=== PATIENT | female | born 1940 | race Caucasian/White ===

== ENCOUNTER → 2017-01-01 | Outpatient (CLI) | payer BC ==
[2015-04-14 14:16] VITALS: BP 117/57
--- NOTE | 2017-01-01 13:42 | KCIC ---
CT scan of the abdomen and pelvis without contrast 01/01/2017 HISTORY: Microscopic hematuria with pelvic pain. TECHNIQUE: Unenhanced, contiguous, 3 mm axial sections were obtained through the abdomen and pelvis. One or more of the following individualized dose reduction techniques were utilized for this study: 1. Automated exposure control. 2. Adjustment of the mA and/or kV according to patient size. 3. Use of iterative reconstruction technique. FINDINGS: No previous imaging studies are available for comparison. Images through the lung bases demonstrate minimal dependent subsegmental atelectasis bilaterally. A 1 cm bulla is seen involving the right lower lobe. Several rounded low-attenuation lesions are seen scattered throughout both lobes of the liver. These measure 5 mm to 3.5 cm in size. They are felt to most likely represent hepatic cysts. The spleen, pancreas and adrenal glands are within normal limits. A rounded 1 cm low-attenuation lesion is seen involving the lower pole of the right kidney. This likely represents a cyst. A 1 mm nonobstructing calculus is seen involving the superior pole of the left kidney. No ureteral calculus is seen. There is no evidence of obstruction of either collecting system. Moderate atherosclerotic calcification of the abdominal aorta is seen. The abdominal aorta is tortuous but tapers normally. The gallbladder slightly contracted. No free fluid or free air is seen within the abdomen. Air and stool is seen throughout the colon. There is no definite evidence of bowel obstruction. Images through the pelvis demonstrate the urinary bladder distended with urine. Calcifications are seen within the pelvis consistent with phleboliths. No distal ureteral calculus is seen. No adnexal mass is noted. No free fluid is seen. Mild S-shaped curvature of the thoracolumbar spine is seen. Degenerative changes are seen involving lower thoracic and throughout the lumbar spine and both hips. IMPRESSION: 1. 1 mm nonobstructing calculus is seen involving the superior pole of the left kidney. 2. No ureteral calculus is seen. There is no evidence of obstruction of either collecting system. 3. No acute abnormality is seen involving the abdomen or pelvis. Electronically signed by: Reese Hobbs MD (01/01/2017 1:38 PM) [email or web address]
== END | disposition home or self-care (01) ==
LOC: KCIC CT 12:21
PROVIDERS: ATTEND Family Medicine
DX: N20.0 Calculus of kidney (principal); I70.0 Atherosclerosis of aorta; R31.29 Other microscopic hematuria
CPT/HCPCS: 74176

== ENCOUNTER → 2017-05-13 | Outpatient (CLI) | payer BC | END | disposition home or self-care (01) | LOC: KCIC US 12:13 | DX: R22.1 Localized swelling, mass and lump, neck (principal) | CPT/HCPCS: 76536 ==

== ENCOUNTER → 2017-05-28 | Outpatient (CLI) | payer BC ==
[2017-05-28] MEDS: IOHEXOL 300 MG/ML 100ML VIAL. IV (09:42)
[2017-05-28 10:25] LABS: ISTAT CREATININE 0.9 mg/dL (0.6-1.1)
== END | disposition home or self-care (01) ==
LOC: KCIC CT 09:05
DX: M47.892 Other spondylosis, cervical region (principal); R22.0 Localized swelling, mass and lump, head
CPT/HCPCS: 70491; 82565; Q9967

== ENCOUNTER 2017-07-18 16:20 | Inpatient (IN) | payer BC ==
[2017-07-18] MEDS: fentaNYL PF VIAL 100 MCG/2 ML VIAL IV (18:26)
[2017-07-18] MEDS: MORPHINE SULFATE 10 MG/ML VIAL. IV (19:46)
[2017-07-18 20:43] LABS: ADD MAN DIFF? NO
[2017-07-18 20:44] LABS: BASO % 0 % (0-3); EOS % 1 % (0-3); HEMATOCRIT 32.8 % (36.0-47.0); HEMOGLOBIN 11.4 g/dL (12.0-15.5); LYMPH # 0.5 x10^3/uL (1.0-4.8); LYMPH % 8 % (24-48); MEAN CORPUSCULAR HEMOGLOBIN 31 pg (25-35); MEAN CORPUSCULAR HGB CONC 35 g/dL (31-37); MEAN CORPUSCULAR VOLUME 90 fL (79-100); MONO # 0.6 x10^3/uL (0.0-1.1); MONO % 9 % (0-9); NEUT # 5.7 x10^3uL (1.8-7.7); NEUT % 83 % (31-73); PLATELET COUNT 166 x10^3/uL (140-400); RED BLOOD COUNT 3.64 x10^6/uL (3.50-5.40); RED CELL DISTRIBUTION WIDTH 15.3 % (11.5-14.5); WHITE BLOOD COUNT 6.8 x10^3/uL (4.0-11.0)
[2017-07-18] MEDS ORDERED: IV NORMAL SALINE 1000ML BAG 1,000 ML IV (20:45)
[2017-07-18] MEDS ORDERED: ONDANSETRON PF 4 MG/2 ML VIAL. IV (20:45)
[2017-07-18 20:54] LABS: INR 1.2 (0.8-1.1); PARTIAL THROMBOPLASTIN TIME 36 SEC (24-38); PROTHROMBIN TIME PATIENT 14.3 SEC (11.7-14.0)
[2017-07-18 21:13] LABS: ANION GAP 9 (6-14); BLOOD UREA NITROGEN 16 mg/dL (7-20); CALCIUM 8.7 mg/dL (8.5-10.1); CARBON DIOXIDE 27 mmol/L (21-32); CHLORIDE 106 mmol/L (98-107); CREATININE 0.9 mg/dL (0.6-1.0); GFR 60.9; GLUCOSE 152 mg/dL (70-99); POTASSIUM 3.6 mmol/L (3.5-5.1); SODIUM 142 mmol/L (136-145)
[2017-07-18] MEDS: MORPHINE SULFATE 4 MG/ML DISP.SYRIN. IV (21:15)
== END 2017-07-19 07:26 | disposition home or self-care (01) | DRG 563 ==
LOC: ER 16:20 → 4 NORTH 20:32
DX: S42.202A Unspecified fracture of upper end of left humerus, initial encounter for closed fracture (principal); F32.9 Major depressive disorder, single episode, unspecified; G47.30 Sleep apnea, unspecified; W01.0XXA Fall on same level from slipping, tripping and stumbling without subsequent striking against object, initial encounter; Y93.01 Activity, walking, marching and hiking; Z87.11 Personal history of peptic ulcer disease; Z91.81 History of falling; Y92.512 Supermarket, store or market as the place of occurrence of the external cause; Z88.8 Allergy status to other drugs, medicaments and biological substances
CPT/HCPCS: 36415; 73030; 73060; 73200; 73564; 76376; 80048; 85025; 85610; 85730; 86850; 86900; 86901; 96374; 96375; 96376; 99285-25; J2270; J3010

== ENCOUNTER 2017-07-23 16:20 | Inpatient (IN) | payer BC ==
[2017-07-23 17:13] LABS: ADD MAN DIFF? NO
[2017-07-23 17:15] LABS: BASO % 0 % (0-3); EOS % 1 % (0-3); HEMATOCRIT 30.3 % (36.0-47.0); HEMOGLOBIN 10.6 g/dL (12.0-15.5); LYMPH # 0.4 x10^3/uL (1.0-4.8); LYMPH % 6 % (24-48); MEAN CORPUSCULAR HEMOGLOBIN 31 pg (25-35); MEAN CORPUSCULAR HGB CONC 35 g/dL (31-37); MEAN CORPUSCULAR VOLUME 89 fL (79-100); MONO # 0.6 x10^3/uL (0.0-1.1); MONO % 9 % (0-9); NEUT # 5.7 x10^3uL (1.8-7.7); NEUT % 85 % (31-73); PLATELET COUNT 236 x10^3/uL (140-400); RED BLOOD COUNT 3.41 x10^6/uL (3.50-5.40); WHITE BLOOD COUNT 6.7 x10^3/uL (4.0-11.0)
[2017-07-23 17:27] LABS: INR 1.2 (0.8-1.1); PARTIAL THROMBOPLASTIN TIME 33 SEC (24-38); PROTHROMBIN TIME PATIENT 14.3 SEC (11.7-14.0)
[2017-07-23 17:32] LABS: ALBUMIN 3.3 g/dL (3.4-5.0); ALBUMIN/GLOBULIN RATIO 0.9 (1.0-1.7); ALK PHOS 70 U/L (46-116); ALT (SGPT) 18 U/L (14-59); AST (SGOT) 13 U/L (15-37); BLOOD UREA NITROGEN 10 mg/dL (7-20); BUN/CREATININE RATIO 13 (6-20); CALCIUM 9.2 mg/dL (8.5-10.1); CARBON DIOXIDE 31 mmol/L (21-32); CHLORIDE 102 mmol/L (98-107); CREATININE 0.8 mg/dL (0.6-1.0); GFR 69.7; GLUCOSE 126 mg/dL (70-99); POTASSIUM 3.4 mmol/L (3.5-5.1); TOTAL BILIRUBIN 0.9 mg/dL (0.2-1.0); TOTAL PROTEIN 7.1 g/dL (6.4-8.2)
[2017-07-23 17:36] LABS: ANION GAP 8 (6-14); SODIUM 141 mmol/L (136-145)
[2017-07-23] MEDS: HEPARIN for IV BOLUS 10,000 UNIT/10 ML VIAL. IV (17:41)
[2017-07-23] MEDS: HEPARIN 25,000UTS/500ML PREMIX 500 ML IV (17:43)
[2017-07-23] MEDS ORDERED: ACETAMINOPHEN 325 MG TABLET. PO (18:15)
[2017-07-23] MEDS ORDERED: hydrALAZINE 20 MG/ML VIAL. IVP (18:15)
[2017-07-23] MEDS ORDERED: ONDANSETRON PF 4 MG/2 ML VIAL. IV (18:15)
[2017-07-23] MEDS: MORPHINE SULFATE 4 MG/ML DISP.SYRIN. IV (20:46)
[2017-07-23 23:59] LABS: UNFRACTIONATED HEPARIN TESTING 0.33 IU/mL (0.30-0.70)
[2017-07-24 03:49] LABS: ADD MAN DIFF? NO
[2017-07-24 03:58] LABS: BASO % 0 % (0-3); EOS # 0.1 x10^3/uL (0.0-0.7); EOS % 1 % (0-3); HEMATOCRIT 27.4 % (36.0-47.0); HEMOGLOBIN 9.8 g/dL (12.0-15.5); LYMPH # 0.6 x10^3/uL (1.0-4.8); LYMPH % 10 % (24-48); MEAN CORPUSCULAR HEMOGLOBIN 31 pg (25-35); MEAN CORPUSCULAR HGB CONC 36 g/dL (31-37); MEAN CORPUSCULAR VOLUME 88 fL (79-100); MONO # 0.6 x10^3/uL (0.0-1.1); MONO % 10 % (0-9); NEUT # 5.3 x10^3uL (1.8-7.7); NEUT % 80 % (31-73); PLATELET COUNT 228 x10^3/uL (140-400); RED BLOOD COUNT 3.13 x10^6/uL (3.50-5.40); RED CELL DISTRIBUTION WIDTH 14.4 % (11.5-14.5); WHITE BLOOD COUNT 6.7 x10^3/uL (4.0-11.0)
[2017-07-24 04:03] LABS: UNFRACTIONATED HEPARIN TESTING 0.24 IU/mL (0.30-0.70)
[2017-07-24 05:19] LABS: ANION GAP 9 (6-14); BLOOD UREA NITROGEN 13 mg/dL (7-20); CALCIUM 8.9 mg/dL (8.5-10.1); CARBON DIOXIDE 30 mmol/L (21-32); CHLORIDE 105 mmol/L (98-107); CREATININE 0.7 mg/dL (0.6-1.0); GFR 81.4; GLUCOSE 127 mg/dL (70-99); POTASSIUM 3.1 mmol/L (3.5-5.1); SODIUM 144 mmol/L (136-145)
[2017-07-24 08:09] LABS: UNFRACTIONATED HEPARIN TESTING 0.19 IU/mL (0.30-0.70)
[2017-07-24] MEDS: HEPARIN for IV BOLUS 10,000 UNIT/10 ML VIAL. IV ×3 (08:45→23:07)
[2017-07-24] MEDS ORDERED: BISACODYL 10 MG SUPP.RECT. PR (11:30)
[2017-07-24] MEDS: POLYETHYLENE GLYCOL 3350 17 GM PACKET. PO (11:59)
[2017-07-24] MEDS: MULTIVITAMIN with MINERAL TABLET. PO (12:00)
[2017-07-24] MEDS: CITALOPRAM 20 MG TABLET. PO (12:00)
[2017-07-24] MEDS: traMADol 50 MG TABLET PO (12:00)
[2017-07-24] MEDS: SENNOSIDES/DOCUSATE 8.6/50MG TABLET. PO ×2 (12:00→21:05)
[2017-07-24] MEDS: CALCIUM CARB/VIT D3 500/200 TABLET. PO (12:00)
[2017-07-24] MEDS: DOCUSATE SODIUM 100 MG CAPSULE. PO (12:00)
[2017-07-24] MEDS: SUCRALFATE 1 GM TABLET. PO ×3 (12:00→21:05)
[2017-07-24 14:39] LABS: UNFRACTIONATED HEPARIN TESTING 0.28 IU/mL (0.30-0.70)
[2017-07-24] MEDS: oxyCODONE/APAP 5/325 1 TAB TABLET PO (16:16)
[2017-07-24] MEDS: PANTOPRAZOLE 40 MG TABLET.DR. PO (16:16)
[2017-07-24] MEDS: WARFARIN 7.5 MG TABLET. PO (16:30)
[2017-07-24] MEDS: MORPHINE SULFATE 4 MG/ML DISP.SYRIN. IV (18:35)
[2017-07-24] MEDS ORDERED: SENNOSIDES/DOCUSATE 8.6/50MG TABLET. PO (21:00)
[2017-07-24 22:16] LABS: UNFRACTIONATED HEPARIN TESTING 0.16 IU/mL (0.30-0.70)
[2017-07-24] MEDS: HEPARIN 25,000UTS/500ML PREMIX 500 ML IV (23:31)
[2017-07-25] MEDS: POLYETHYLENE GLYCOL 3350 17 GM PACKET. PO ×2 (09:00→09:11)
[2017-07-25 09:03] LABS: ANION GAP 8 (6-14); BLOOD UREA NITROGEN 13 mg/dL (7-20); CALCIUM 8.8 mg/dL (8.5-10.1); CARBON DIOXIDE 28 mmol/L (21-32); CHLORIDE 106 mmol/L (98-107); CREATININE 0.8 mg/dL (0.6-1.0); GFR 69.7; GLUCOSE 138 mg/dL (70-99); SODIUM 142 mmol/L (136-145)
[2017-07-25] MEDS: CITALOPRAM 20 MG TABLET. PO (09:12)
[2017-07-25] MEDS: MULTIVITAMIN with MINERAL TABLET. PO (09:12)
[2017-07-25] MEDS: traMADol 50 MG TABLET PO (09:12)
[2017-07-25] MEDS: SUCRALFATE 1 GM TABLET. PO ×4 (09:12→20:55)
[2017-07-25] MEDS: PANTOPRAZOLE 40 MG TABLET.DR. PO ×2 (09:12→16:31)
[2017-07-25] MEDS: CALCIUM CARB/VIT D3 500/200 TABLET. PO (09:12)
[2017-07-25] MEDS: SENNOSIDES/DOCUSATE 8.6/50MG TABLET. PO ×2 (09:13→20:56)
[2017-07-25 10:11] LABS: HEMATOCRIT 27.6 % (36.0-47.0); HEMOGLOBIN 9.7 g/dL (12.0-15.5); MEAN CORPUSCULAR HEMOGLOBIN 32 pg (25-35); MEAN CORPUSCULAR HGB CONC 35 g/dL (31-37); MEAN CORPUSCULAR VOLUME 90 fL (79-100); PLATELET COUNT 266 x10^3/uL (140-400); RED BLOOD COUNT 3.06 x10^6/uL (3.50-5.40); RED CELL DISTRIBUTION WIDTH 14.8 % (11.5-14.5); WHITE BLOOD COUNT 6.4 x10^3/uL (4.0-11.0)
[2017-07-25 10:31] LABS: INR 1.2 (0.8-1.1); PROTHROMBIN TIME PATIENT 14.8 SEC (11.7-14.0); UNFRACTIONATED HEPARIN TESTING 0.45 IU/mL (0.30-0.70)
[2017-07-25] MEDS: POTASSIUM CHLORIDE 20 MEQ TABLET.ER. PO ×2 (11:41→20:55)
[2017-07-25 12:26] LABS: UNFRACTIONATED HEPARIN TESTING 0.52 IU/mL (0.30-0.70)
[2017-07-25] MEDS: WARFARIN 5 MG TABLET. PO (16:31)
[2017-07-25] MEDS: oxyCODONE/APAP 5/325 1 TAB TABLET PO (16:33)
[2017-07-26 06:56] LABS: HEMATOCRIT 26.5 % (36.0-47.0); HEMOGLOBIN 9.2 g/dL (12.0-15.5); MEAN CORPUSCULAR HEMOGLOBIN 31 pg (25-35); MEAN CORPUSCULAR HGB CONC 35 g/dL (31-37); MEAN CORPUSCULAR VOLUME 90 fL (79-100); PLATELET COUNT 237 x10^3/uL (140-400); RED BLOOD COUNT 2.96 x10^6/uL (3.50-5.40); RED CELL DISTRIBUTION WIDTH 15.1 % (11.5-14.5); WHITE BLOOD COUNT 4.7 x10^3/uL (4.0-11.0)
[2017-07-26 07:16] LABS: ALBUMIN 2.8 g/dL (3.4-5.0); ALBUMIN/GLOBULIN RATIO 0.8 (1.0-1.7); ALK PHOS 63 U/L (46-116); ALT (SGPT) 20 U/L (14-59); ANION GAP 4 (6-14); AST (SGOT) 14 U/L (15-37); BLOOD UREA NITROGEN 10 mg/dL (7-20); BUN/CREATININE RATIO 13 (6-20); CALCIUM 8.8 mg/dL (8.5-10.1); CARBON DIOXIDE 33 mmol/L (21-32); CHLORIDE 106 mmol/L (98-107); CREATININE 0.8 mg/dL (0.6-1.0); GFR 69.7; GLUCOSE 126 mg/dL (70-99); POTASSIUM 4.3 mmol/L (3.5-5.1); SODIUM 143 mmol/L (136-145); TOTAL BILIRUBIN 0.5 mg/dL (0.2-1.0); TOTAL PROTEIN 6.2 g/dL (6.4-8.2)
[2017-07-26 07:55] LABS: UNFRACTIONATED HEPARIN TESTING 0.44 IU/mL (0.30-0.70)
[2017-07-26 08:05] LABS: INR 1.6 (0.8-1.1); PROTHROMBIN TIME PATIENT 18.5 SEC (11.7-14.0)
[2017-07-26] MEDS: SUCRALFATE 1 GM TABLET. PO ×4 (08:41→21:34)
[2017-07-26] MEDS: PANTOPRAZOLE 40 MG TABLET.DR. PO ×2 (08:41→17:28)
[2017-07-26] MEDS: traMADol 50 MG TABLET PO (08:41)
[2017-07-26] MEDS: CALCIUM CARB/VIT D3 500/200 TABLET. PO (08:41)
[2017-07-26] MEDS: SENNOSIDES/DOCUSATE 8.6/50MG TABLET. PO ×2 (08:41→21:00)
[2017-07-26] MEDS: MULTIVITAMIN with MINERAL TABLET. PO (08:41)
[2017-07-26] MEDS: CITALOPRAM 20 MG TABLET. PO (08:42)
[2017-07-26] MEDS: POLYETHYLENE GLYCOL 3350 17 GM PACKET. PO (08:42)
[2017-07-26] MEDS: ANTI-COAG MONITOR BY PHARMACY. MC (13:59)
[2017-07-26] MEDS: WARFARIN 3 MG TABLET. PO (17:30)
[2017-07-26] MEDS: oxyCODONE/APAP 5/325 1 TAB TABLET PO (18:53)
[2017-07-26] MEDS: HEPARIN 25,000UTS/500ML PREMIX 500 ML IV (19:00)
[2017-07-27 06:00] LABS: INR 1.9 (0.8-1.1); PROTHROMBIN TIME PATIENT 20.8 SEC (11.7-14.0)
[2017-07-27 06:02] LABS: UNFRACTIONATED HEPARIN TESTING 0.54 IU/mL (0.30-0.70)
[2017-07-27] MEDS: SUCRALFATE 1 GM TABLET. PO ×4 (09:00→20:33)
[2017-07-27] MEDS: CALCIUM CARB/VIT D3 500/200 TABLET. PO (09:00)
[2017-07-27] MEDS: POLYETHYLENE GLYCOL 3350 17 GM PACKET. PO (09:14)
[2017-07-27] MEDS: CITALOPRAM 20 MG TABLET. PO (09:15)
[2017-07-27] MEDS: SENNOSIDES/DOCUSATE 8.6/50MG TABLET. PO ×2 (09:15→20:34)
[2017-07-27] MEDS: PANTOPRAZOLE 40 MG TABLET.DR. PO ×2 (09:15→16:50)
[2017-07-27] MEDS: MULTIVITAMIN with MINERAL TABLET. PO (09:15)
[2017-07-27] MEDS: traMADol 50 MG TABLET PO (09:15)
[2017-07-27] MEDS: ANTI-COAG MONITOR BY PHARMACY. MC (13:06)
[2017-07-27] MEDS: WARFARIN 3 MG TABLET. PO (16:50)
[2017-07-27] MEDS: HEPARIN 25,000UTS/500ML PREMIX 500 ML IV (20:33)
[2017-07-28 04:52] LABS: ADD MAN DIFF? NO
[2017-07-28 05:05] LABS: BASO % 0 % (0-3); EOS # 0.1 x10^3/uL (0.0-0.7); EOS % 2 % (0-3); HEMATOCRIT 28.1 % (36.0-47.0); HEMOGLOBIN 9.9 g/dL (12.0-15.5); LYMPH # 0.6 x10^3/uL (1.0-4.8); LYMPH % 10 % (24-48); MEAN CORPUSCULAR HEMOGLOBIN 32 pg (25-35); MEAN CORPUSCULAR HGB CONC 35 g/dL (31-37); MEAN CORPUSCULAR VOLUME 90 fL (79-100); MONO # 0.5 x10^3/uL (0.0-1.1); MONO % 8 % (0-9); NEUT # 4.5 x10^3uL (1.8-7.7); NEUT % 79 % (31-73); PLATELET COUNT 260 x10^3/uL (140-400); RED BLOOD COUNT 3.13 x10^6/uL (3.50-5.40); RED CELL DISTRIBUTION WIDTH 15.6 % (11.5-14.5); WHITE BLOOD COUNT 5.7 x10^3/uL (4.0-11.0)
[2017-07-28 05:17] LABS: INR 1.9 (0.8-1.1); PROTHROMBIN TIME PATIENT 21.5 SEC (11.7-14.0)
[2017-07-28 05:18] LABS: UNFRACTIONATED HEPARIN TESTING 0.53 IU/mL (0.30-0.70)
[2017-07-28 05:28] LABS: ANION GAP 7 (6-14); BLOOD UREA NITROGEN 13 mg/dL (7-20); CALCIUM 8.7 mg/dL (8.5-10.1); CARBON DIOXIDE 31 mmol/L (21-32); CHLORIDE 105 mmol/L (98-107); CREATININE 0.9 mg/dL (0.6-1.0); GFR 60.9; GLUCOSE 122 mg/dL (70-99); POTASSIUM 4.1 mmol/L (3.5-5.1); SODIUM 143 mmol/L (136-145)
[2017-07-28] MEDS: SENNOSIDES/DOCUSATE 8.6/50MG TABLET. PO ×2 (08:35→20:37)
[2017-07-28] MEDS: MULTIVITAMIN with MINERAL TABLET. PO (08:35)
[2017-07-28] MEDS: oxyCODONE/APAP 5/325 1 TAB TABLET PO (08:35)
[2017-07-28] MEDS: SUCRALFATE 1 GM TABLET. PO ×4 (08:35→20:37)
[2017-07-28] MEDS: PANTOPRAZOLE 40 MG TABLET.DR. PO ×2 (08:35→16:54)
[2017-07-28] MEDS: CITALOPRAM 20 MG TABLET. PO (08:35)
[2017-07-28] MEDS: CALCIUM CARB/VIT D3 500/200 TABLET. PO (08:35)
[2017-07-28] MEDS: POLYETHYLENE GLYCOL 3350 17 GM PACKET. PO (08:39)
[2017-07-28] MEDS: ANTI-COAG MONITOR BY PHARMACY. MC (13:15)
[2017-07-28] MEDS: HEPARIN 25,000UTS/500ML PREMIX 500 ML IV (15:08)
[2017-07-28] MEDS: WARFARIN 3 MG TABLET. PO (16:54)
[2017-07-29 04:32] LABS: ADD MAN DIFF? NO
[2017-07-29 04:51] LABS: BASO % 0 % (0-3); EOS # 0.1 x10^3/uL (0.0-0.7); EOS % 2 % (0-3); HEMATOCRIT 29.5 % (36.0-47.0); HEMOGLOBIN 10.3 g/dL (12.0-15.5); LYMPH # 0.7 x10^3/uL (1.0-4.8); LYMPH % 10 % (24-48); MEAN CORPUSCULAR HEMOGLOBIN 32 pg (25-35); MEAN CORPUSCULAR HGB CONC 35 g/dL (31-37); MEAN CORPUSCULAR VOLUME 90 fL (79-100); MONO # 0.5 x10^3/uL (0.0-1.1); MONO % 8 % (0-9); NEUT # 5.7 x10^3uL (1.8-7.7); NEUT % 81 % (31-73); PLATELET COUNT 298 x10^3/uL (140-400); RED BLOOD COUNT 3.27 x10^6/uL (3.50-5.40); RED CELL DISTRIBUTION WIDTH 15.8 % (11.5-14.5)
[2017-07-29 05:06] LABS: INR 1.9 (0.8-1.1); PROTHROMBIN TIME PATIENT 20.9 SEC (11.7-14.0)
[2017-07-29 05:07] LABS: UNFRACTIONATED HEPARIN TESTING 0.67 IU/mL (0.30-0.70)
[2017-07-29 05:22] LABS: ANION GAP 8 (6-14); BLOOD UREA NITROGEN 11 mg/dL (7-20); CALCIUM 9.1 mg/dL (8.5-10.1); CARBON DIOXIDE 29 mmol/L (21-32); CHLORIDE 106 mmol/L (98-107); CREATININE 0.9 mg/dL (0.6-1.0); GFR 60.9; GLUCOSE 123 mg/dL (70-99); SODIUM 143 mmol/L (136-145)
[2017-07-29] MEDS: MULTIVITAMIN with MINERAL TABLET. PO (09:10)
[2017-07-29] MEDS: POLYETHYLENE GLYCOL 3350 17 GM PACKET. PO (09:10)
[2017-07-29] MEDS: SENNOSIDES/DOCUSATE 8.6/50MG TABLET. PO (09:11)
[2017-07-29] MEDS: CITALOPRAM 20 MG TABLET. PO (09:11)
[2017-07-29] MEDS: SUCRALFATE 1 GM TABLET. PO (09:11)
[2017-07-29] MEDS: CALCIUM CARB/VIT D3 500/200 TABLET. PO (09:11)
[2017-07-29] MEDS: PANTOPRAZOLE 40 MG TABLET.DR. PO (09:11)
[2017-07-29] MEDS: ANTI-COAG MONITOR BY PHARMACY. MC (12:42)
== END 2017-07-29 12:35 | disposition home or self-care (01) | DRG 299 ==
LOC: ER 16:20 → 5 SOUTH 17:30
DX: I82.622 Acute embolism and thrombosis of deep veins of left upper extremity (principal); G93.40 Encephalopathy, unspecified; E44.1 Mild protein-calorie malnutrition; S42.202A Unspecified fracture of upper end of left humerus, initial encounter for closed fracture; D64.9 Anemia, unspecified; E87.6 Hypokalemia; Z68.1 Body mass index [BMI] 19.9 or less, adult; I82.A12 Acute embolism and thrombosis of left axillary vein; S60.222A Contusion of left hand, initial encounter; W18.39XA Other fall on same level, initial encounter; F32.9 Major depressive disorder, single episode, unspecified; F40.240 Claustrophobia; G47.33 Obstructive sleep apnea (adult) (pediatric); K28.9 Gastrojejunal ulcer, unspecified as acute or chronic, without hemorrhage or perforation; K59.00 Constipation, unspecified; M81.0 Age-related osteoporosis without current pathological fracture; Z87.11 Personal history of peptic ulcer disease; Z88.8 Allergy status to other drugs, medicaments and biological substances; Z91.011 Allergy to milk products; Y93.89 Activity, other specified; Y92.89 Other specified places as the place of occurrence of the external cause; Y99.8 Other external cause status; Z90.49 Acquired absence of other specified parts of digestive tract
CPT/HCPCS: 36415; 80048; 80053; 85025; 85027; 85520; 85610; 85730; 93971; 96374; 97162-GP; 97166-GO; 97530-GP; 99285; 99285-25; J1644; J2270

== ENCOUNTER 2020-12-16 03:44 | Inpatient (IN) | payer BC ==
[~2020-12-16] VITALS: Ht 157.5 cm; Wt 62.4 kg
[~2020-12-16 03:44] MED LIST: CALC-98 PO; CEFP100T PO; CITA40TA5 PO; CYCL10TA2 PO; HYDR-2765 PO; HYDR-3164 PO; MULT-697 PO; OMEP20CA16 PO; OXYC1TAB15 PO; SUCR1TAB PO
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
--- NOTE | 2020-12-16 04:52 | RAD ---
EXAM: CT Head without IV contrast CLINICAL HISTORY: Reason: FALL, LOW BACK PAIN / Spl. Instructions: / History: COMPARISON: None. TECHNIQUE: Routine CT of the head without contrast. PQRS compliance statement - One or more of the following individualized dose reduction techniques wer e utilized for this study: 1. Automated exposure control 2. Adjustment of the mA and/or kV according to patient size 3. Use of iterative reconstruction technique FINDINGS: There is no evidence of hemorrhage, mass or extra-axial fluid collection. Deluca-white differentiation is maintained with no evidence of edema. There is no mass effect or shift of the intracranial structures. The ventricles, basilar cisterns and cortical sulci are normal in size and configuration for the uma ents stated age. The cerebellum and brainstem are unremarkable. The calvarium demonstrates no evidence of fracture or focal lesion. There is normal aeration of the visualized paranasal sinuses and mastoid air cells. The visualized portions of the orbits are normal. IMPRESSION: No evidence for acute intracranial process. Electronically signed by: Tony Hoffmann MD (12/16/2020 4:49 AM) [facility]
[2020-12-16 04:55] LABS: BASO % 0 % (0-3); EOS % 1 % (0-3); HEMATOCRIT 31.6 % (36.0-47.0); HEMOGLOBIN 10.9 g/dL (12.0-15.5); LYMPH # 0.6 x10^3/uL (1.0-4.8); LYMPH % 9 % (24-48); MEAN CORPUSCULAR HEMOGLOBIN 32 pg (25-35); MEAN CORPUSCULAR HGB CONC 35 g/dL (31-37); MEAN CORPUSCULAR VOLUME 94 fL (79-100); MONO # 0.5 x10^3/uL (0.0-1.1); MONO % 7 % (0-9); NEUT # 5.7 x10^3/uL (1.8-7.7); NEUT % 83 % (31-73); PLATELET COUNT 185 x10^3/uL (140-400); RED BLOOD COUNT 3.38 x10^6/uL (3.50-5.40); RED CELL DISTRIBUTION WIDTH 14.5 % (11.5-14.5); WHITE BLOOD COUNT 6.9 x10^3/uL (4.0-11.0)
--- NOTE | 2020-12-16 05:00 | RAD ---
EXAM: CT lumbar spine without IV contrast CLINICAL HISTORY:Reason: FALL, LOW BACK PAIN / Spl. Instructions: / History: COMPARISON: None available. TECHNIQUE: Helical CT was performed through the lumbar spine. Axial, coronal and sagittal reformatted images were generated. PQRS compliance statement - One or more of the following individualized dose reduction techniques wer e utilized for this study: 1. Automated exposure control 2. Adjustment of the mA and/or kV according to patient size 3. Use of iterative reconstruction technique FINDINGS: Vertebral body heights are preserved. No acute fracture. Decreased bone mineral density. Severe L2-3, L3-4 disc height loss. Trace anterolisthesis of L4 on L5. There is rightward curvature o f the lower lumbar spine. Facet degenerative changes are seen, most prominent at L3-4 and L4-5. Hypodense hepatic lesions likely cystic. Aortic calcifications are seen. Moderate colonic stool len nt is partially profiled. Colonic diverticula are seen. IMPRESSION: 1. Within the constraints of osteopenia, no definite fracture is seen. If there is persistent clinic al concern for fracture, MRI is recommended. 2. Trace anterolisthesis of L4 on L5 is likely degenerative. Electronically signed by: Tony Hoffmann MD (12/16/2020 4:57 AM) [facility]
--- NOTE | 2020-12-16 05:01 | RAD ---
EXAM: AP View of the chest DATE: 12/16/2020 4:10 AM INDICATION: Reason: FALL, LEFT RIB PAIN / Spl. Instructions: / History: COMPARISON: 08/27/2017 FINDINGS: The heart is not enlarged. Mediastinal and hilar contours are normal. No focal parenchymal airspace opacity. Mild biapical pleural/parenchymal scarring/thickening. No pleural effusion or pneumothorax. Old/healed left humeral fracture. IMPRESSION: 1. No radiographic evidence for acute cardiopulmonary process. Electronically signed by: Tony Hoffmann MD (12/16/2020 4:58 AM) [facility]
[2020-12-16 05:06] LABS: CALCIUM 9.3 mg/dL (8.5-10.1); CREATININE 0.9 mg/dL (0.6-1.0); GFR 60.2; POTASSIUM 4.1 mmol/L (3.5-5.1)
[2020-12-16 05:11] LABS: ALBUMIN/GLOBULIN RATIO 1.3 (1.0-1.7); MAGNESIUM 2.1 mg/dL (1.8-2.4); PHOSPHORUS 3.3 mg/dL (2.6-4.7); TOTAL BILIRUBIN 0.4 mg/dL (0.2-1.0); TOTAL PROTEIN 7.1 g/dL (6.4-8.2)
--- NOTE | 2020-12-16 07:36 | PDOC1 ---
History and Physical Date of Admission Date of Admission DATE: 12/16/20 TIME: 07:36 Identification/Chief Complaint Chief Complaint Weakness, confusion Source Source: Chart review, Patient History of Present Illness History of Present Illness Ms Acosta is an 80 yo female with history osteoporosis, depression and recent diagnosis of alzheimer dementia presents to the ED accompanied by her son. She had a mechanical fall at home a few weeks ago and has been more paranoid over the past 6 weeks. She was seen by her PCP, referred to neurology and was diagnosed with alzheimer dementia and started on aricept recently. States that she has a low back pain and left sided rib pain. CT negative for acute fracture of spine or ribs. CT head with no intracranial abnormality. She states that she has had poor appetite for a long time and has been losing weight, her son notes she forgets to eat. Per history gathered from nursing, patient has had decline in her dementia over the past several weeks. She was treated for a UTI a week ago. She called the police on her son earlier last week. She has stated that she is unsafe at home, because he "sprays that stuff all around" but is unable to further elaborate what she is talking about. She insists on going home but cannot even stand up with me and WBC 6.9, Hb 10.9, platelets 25, NA 142, K4.1, BUN 14, CR 0.9, glucose 1, LFTs within normal laboratory limits. Urine with positive leukocyte esterase. Admitted for further care. Past Medical History Cardiovascular: No pertinent hx Pulmonary: No pertinent hx CENTRAL NERVOUS SYSTEM: Dementia GI: Peptic Ulcer disease Hepatobiliary: No pertinent hx Psych: Depression Musculoskeletal: Other Renal/: No pertinent hx Past Surgical History Past Surgical History: Total hip replacement, Tonsillectomy Family History Family History: Hypertension, Other Family History: Parent Social History Smoke: No ALCOHOL: none Drugs: None Current Problem List Problem List Problems Medical Problems: (1) Cachexia Status: Acute (2) Cognitive safety issue Status: Acute Current Medications Current Medications Active Scripts Active Hydrocodone-Apap 7.5-325 (Hydrocodone Bit/Acetaminophen) 1 Each Tablet 1 Tab PO PRN Q4HRS PRN Cefpodoxime Proxetil 100 Mg Tablet 200 Mg PO BID 3 Days Reported Centrum Adults Tablet (Multivitamin/Iron/Folic Acid) 1 Each Tablet 1 Each PO DAILY Calcium + Vitamin D Tablet (Calcium Carbonate/Vitamin D3) 1 Each Tablet 1 Each PO DAILY Citalopram Hbr (Citalopram Hydrobromide) 40 Mg Tablet 1 Tab PO DAILY No Known Medications Prior To Admisstion (Info) Each 1 Each MC Allergies Allergies: Coded Allergies: Milk Containing Products (Verified Allergy, Intermediate, 08/29/17) raloxifene (Verified Allergy, Intermediate, 08/29/17) ROS General: YES: Fatigue, Malaise; No: Chills, Night Sweats, Appetite, Other PSYCHOLOGICAL ROS: No: Anxiety, Behavioral Disorder, Concentration difficultie, Decreased libido, Depression, Disorientation, Hallucinations, Hostility, Irritablity, Memory difficulties, Mood Swings, Obsessive thoughts, Physical abuse, Sexual abuse, Sleep disturbances, Suicidal ideation, Other Eyes: No Blurry vision, No Decreased vision, No Double vision, No Dry eyes, No Excessive tearing, No Eye Pain, No Itchy Eyes, No Loss of vision, No Photophobia, No Scotomata, No Uses contacts, No Uses glasses, No Other HEENT: No: Heacaches, Visual Changes, Hearing change, Nasal congestion, Nasal discharge, Oral lesions, Sinus pain, Sore Throat, Epistaxis, Sneezing, Snoring, Tinnitus, Vertigo, Vocal changes, Other ALLERGY AND IMMUNOLOGY: No: Hives, Insect Bite Sensitivity, Itchy/Watery Eyes, Nasal Congestion, Post Nasal Drip, Seasonal Allergies, Other Hematological and Lymphatic: No: Bleeding Problems, Blood Clots, Blood Transfusions, Brusing, Night Sweats, Pallor, Swollen Lymph Nodes, Other ENDOCRINE: No: Breast Changes, Galactorrhea, Hair Pattern Changes, Hot Flashes, Malaise/lethargy, Mood Swings, Palpitations, Polydipsia/polyuria, Skin Changes, Temperature Intolerance, Unexpected Weight Changes, Other Breast: No New/Changing Breast Lumps, No Nipple changes, No Nipple discharge, No Other Respiratory: No: Cough, Hemoptysis, Orthopnea, Pleuritic Pain, Shortness of breath, SOB with excertion, Sputum Changes, Stridor, Tachypnea, Wheezing, Other Cardiovascular: No Chest Pain, No Palpitations, No Orthopnea, No Paroxysmal Noc. Dyspnea, No Edema, No Lt Headedness, No Other Gastrointestinal: No Nausea, No Vomiting, No Abdominal Pain, No Diarrhea, No Constipation, No Melena, No Hematochezia, No Other Genitourinary: No Dysuria, No Frequency, No Incontinence, No Hematuria, No Retention, No Discharge, No Urgency, No Pain, No Flank Pain, No Other, No , No , No , No , No , No , No Musculoskeletal: Yes Muscular Weakness; No Gait Disturbance, No Joint Pain, No Joint Stiffness, No Joint Swelling, No Muscle Pain, No Pain In:, No Swelling In:, No Other Neurological: Yes Confusion, Yes Dizziness, Yes Gait Disturbance; No Behavorial Changes, No Bowel/Bladder ControlChng, No Headaches, No Impaired Coord/balance, No Memory Loss, No Numbness/Tingling, No Seizures, No Speech Problems, No Tremors, No Visual Changes, No Weakness, No Other Skin: No Dry Skin, No Eczema, No Hair Changes, No Lumps, No Mole Changes, No Mottling, No Nail Changes, No Pruritus, No Rash, No Skin Lesion Changes, No Other, No Acne Physical Exam General: Alert, Cooperative, No acute distress HEENT: Atraumatic, PERRLA, EOMI, Mucous membr. moist/pink Lungs: Clear to auscultation, Normal air movement Heart: S1S2, RRR, no thrills, no rubs, no gallops, no murmurs Abdomen: Normal bowel sounds, Soft, No tenderness, No hepatosplenomegaly, No masses Extremities: No clubbing, No cyanosis, No edema, Normal pulses, No tenderness/swelling Skin: No rashes, No breakdown, No significant lesion Neuro: Normal speech, Strength at 5/5 X4 ext, Normal tone, Sensation intact, Cranial nerves 3-12 NL, Reflexes 2+ Psych/Mental Status: Other Vitals Vitals Vital Signs Date Time Temp Pulse Resp B/P (MAP) Pulse Ox O2 Delivery O2 Flow Rate FiO2 12/16/20 06:15 92 16 132/68 (89) 98 Room Air 12/16/20 04:06 98.7 98.7 Labs Labs Laboratory Tests Test 12/16/20 04:45 White Blood Count 6.9 x10^3/uL (4.0-11.0) Red Blood Count 3.38 x10^6/uL (3.50-5.40) Hemoglobin 10.9 g/dL (12.0-15.5) Hematocrit 31.6 % (36.0-47.0) Mean Corpuscular Volume 94 fL (79-100) Mean Corpuscular Hemoglobin 32 pg (25-35) Mean Corpuscular Hemoglobin Concent 35 g/dL (31-37) Red Cell Distribution Width 14.5 % (11.5-14.5) Platelet Count 185 x10^3/uL (140-400) Neutrophils (%) (Auto) 83 % (31-73) Lymphocytes (%) (Auto) 9 % (24-48) Monocytes (%) (Auto) 7 % (0-9) Eosinophils (%) (Auto) 1 % (0-3) Basophils (%) (Auto) 0 % (0-3) Neutrophils # (Auto) 5.7 x10^3/uL (1.8-7.7) Lymphocytes # (Auto) 0.6 x10^3/uL (1.0-4.8) Monocytes # (Auto) 0.5 x10^3/uL (0.0-1.1) Eosinophils # (Auto) 0.0 x10^3/uL (0.0-0.7) Basophils # (Auto) 0.0 x10^3/uL (0.0-0.2) Sodium Level 142 mmol/L (136-145) Potassium Level 4.1 mmol/L (3.5-5.1) Chloride Level 106 mmol/L (98-107) Carbon Dioxide Level 32 mmol/L (21-32) Anion Gap 4 (6-14) Blood Urea Nitrogen 14 mg/dL (7-20) Creatinine 0.9 mg/dL (0.6-1.0) Estimated GFR (Cockcroft-Gault) 60.2 BUN/Creatinine Ratio 16 (6-20) Glucose Level 105 mg/dL (70-99) Calcium Level 9.3 mg/dL (8.5-10.1) Phosphorus Level 3.3 mg/dL (2.6-4.7) Magnesium Level 2.1 mg/dL (1.8-2.4) Total Bilirubin 0.4 mg/dL (0.2-1.0) Aspartate Amino Transf (AST/SGOT) 13 U/L (15-37) Alanine Aminotransferase (ALT/SGPT) 26 U/L (14-59) Alkaline Phosphatase 42 U/L (46-116) Total Protein 7.1 g/dL (6.4-8.2) Albumin 4.0 g/dL (3.4-5.0) Albumin/Globulin Ratio 1.3 (1.0-1.7) Laboratory Tests Test 12/16/20 04:45 White Blood Count 6.9 x10^3/uL (4.0-11.0) Red Blood Count 3.38 x10^6/uL (3.50-5.40) Hemoglobin 10.9 g/dL (12.0-15.5) Hematocrit 31.6 % (36.0-47.0) Mean Corpuscular Volume 94 fL (79-100) Mean Corpuscular Hemoglobin 32 pg (25-35) Mean Corpuscular Hemoglobin Concent 35 g/dL (31-37) Red Cell Distribution Width 14.5 % (11.5-14.5) Platelet Count 185 x10^3/uL (140-400) Neutrophils (%) (Auto) 83 % (31-73) Lymphocytes (%) (Auto) 9 % (24-48) Monocytes (%) (Auto) 7 % (0-9) Eosinophils (%) (Auto) 1 % (0-3) Basophils (%) (Auto) 0 % (0-3) Neutrophils # (Auto) 5.7 x10^3/uL (1.8-7.7) Lymphocytes # (Auto) 0.6 x10^3/uL (1.0-4.8) Monocytes # (Auto) 0.5 x10^3/uL (0.0-1.1) Eosinophils # (Auto) 0.0 x10^3/uL (0.0-0.7) Basophils # (Auto) 0.0 x10^3/uL (0.0-0.2) Sodium Level 142 mmol/L (136-145) Potassium Level 4.1 mmol/L (3.5-5.1) Chloride Level 106 mmol/L (98-107) Carbon Dioxide Level 32 mmol/L (21-32) Anion Gap 4 (6-14) Blood Urea Nitrogen 14 mg/dL (7-20) Creatinine 0.9 mg/dL (0.6-1.0) Estimated GFR (Cockcroft-Gault) 60.2 BUN/Creatinine Ratio 16 (6-20) Glucose Level 105 mg/dL (70-99) Calcium Level 9.3 mg/dL (8.5-10.1) Phosphorus Level 3.3 mg/dL (2.6-4.7) Magnesium Level 2.1 mg/dL (1.8-2.4) Total Bilirubin 0.4 mg/dL (0.2-1.0) Aspartate Amino Transf (AST/SGOT) 13 U/L (15-37) Alanine Aminotransferase (ALT/SGPT) 26 U/L (14-59) Alkaline Phosphatase 42 U/L (46-116) Total Protein 7.1 g/dL (6.4-8.2) Albumin 4.0 g/dL (3.4-5.0) Albumin/Globulin Ratio 1.3 (1.0-1.7) Images Images CT head: There is no evidence of hemorrhage, mass or extra-axial fluid collection. Deluca-white differentiation is maintained with no evidence of edema. There is no mass effect or shift of the intracranial structures. The ventricles, basilar cisterns and cortical sulci are normal in size and conf iguration for the patients stated age. The cerebellum and brainstem are unremarkable. The calvarium demonstrates no evidence of fracture or focal lesion. There is normal aeration of the visualized paranasal sinuses and mastoid air cells. The visualized portions of the orbits are normal. IMPRESSION: No evidence for acute intracranial process. CT lumbar spine: Vertebral body heights are preserved. No acute fracture. Decreased bone mineral density. Severe L2-3, L3-4 disc height loss. Trace anterolisthesis of L4 on L5. There is rightward curvature of the lower lumbar spine. Facet degenerative changes are seen, most prominent at L3-4 and L4-5. Hypodense hepatic lesions likely cystic. Aortic calcifications are seen. Moderate colonic stool content is partially profiled. Colonic diverticula are seen. IMPRESSION: 1. Within the constraints of osteopenia, no definite fracture is seen. If there is persistent clinical concern for fracture, MRI is recommended. 2. Trace anterolisthesis of L4 on L5 is likely degenerative. VTE Prophylaxis Ordered VTE Prophylaxis Devices: Yes VTE Pharmacological Prophylaxi: Yes Assessment/Plan Assessment/Plan A/P: Acute encephalopathy - due to quick neurocognitive decline. No SDH noted. Urine with leukocyte esterase positive, likely due to UTI, will give rocephin IV. Light during day, prn zyprexa, frequent redirection Fall at home - no SDH, no fracture Dementia - on aricept, will hold for fall at home. exchange for memantine while inpatient Paranoia - likely acute psychosis due to infectious etiology from UTI GERD - H2 [place] at home - PT and PMR to evaluate FEN - General diet PPX - lovenox CODE - DNR/DNI Dispo - inpatient for acute encephalopathy Justifications for Admission Other Justification JOSE ALEJANDRO MUIR MD Dec 16, 2020 07:36
[2020-12-16 07:45] LABS: BILIRUBIN,URINE NEGATIVE (NEG); CLARITY,URINE CLEAR; COLOR,URINE YELLOW; NITRITE,URINE NEGATIVE (NEG); PROTEIN,URINE NEGATIVE (NEG-TRACE); UROBILINOGEN,URINE 0.2 mg/dL (0.2 mg/dL)
[2020-12-16] MEDS ORDERED: ONDANSETRON PF 4 MG/2 ML VIAL. IVP PRN (07:45)
[2020-12-16] MEDS ORDERED: ACETAMINOPHEN 325 MG TABLET. PO PRN (07:45)
[2020-12-16 07:54] LABS: BACTERIA,URINE FEW /HPF (0-FEW)
[2020-12-16 08:00] VITALS: BP 126/70
[2020-12-16] MEDS ORDERED: DONE5TAB7 PO (08:16)
[2020-12-16] MEDS ORDERED: BUSP15TA PO (08:20)
[2020-12-16] MEDS ORDERED: TRAM50TA PO (08:20)
[2020-12-16] MEDS ORDERED: GABA-585 PO (08:20)
[2020-12-16] MEDS ORDERED: ACET500T68 PO (08:20)
[2020-12-16] MEDS: ENOXAPARIN 30 MG/0.3 ML SYRINGE. SQ SCH (09:00)
[2020-12-16 11:00] VITALS: BP 146/82
--- NOTE | 2020-12-16 11:57 | NUR ---
Patient arrived to the floor around 0749 in a wheelchair per transportation. Five medications were sent down to pharmacy upon admission. Patient was oriented to the unit and hospital. Son Cruz was called but this nurse wasnt able to get ahold of him upon admission, will continue to try. She lives at home with her son and stated to this nurse that she doesnt always feel safe and feels neglected. SW and CM notified. Patient is now stating that she feels safe and is ready to go home. She refused her lovenox stating "I dont need that since I will be going home". Education performed. Patient is very forgetful and has been oriented to the hospital environment often. Bed alarm on. Will continue to monitor.
[2020-12-16] MEDS: CITALOPRAM 20 MG TABLET. PO SCH (12:35)
[2020-12-16] MEDS: MULTIVITAMIN with MINERAL TABLET. PO SCH (12:35)
[2020-12-16] MEDS: CALCIUM CARB/VIT D3 500/200 TABLET. PO SCH (12:35)
--- NOTE | 2020-12-16 13:53 | NUR ---
EDUARD following. Discussed with RN, pt from home with son, room air, regular diet. EDUARD spoke with son, Bar - he reports the pt does not believe anything he says, and sometimes doesn't take her medicine and thinks he is doing things to her, however has called him from her requesting he pick her up. Bar reported he does have DPOA paperwork and is agreeable to SW finding out if pt qualifies for [facility]. Bar reported he is waiting for a return call from the [employer] as well. SW received return call from Roseanna at [facility], they do not have any beds and have a wait list, anticipate beds in a couple of weeks. Pt's insurance can be accepted by likely would be a copay. EDUARD will continue to follow. Addendum: 12/16/20 at [address] Covarrubias spoke with pt's son, RN reported plan is for pt to receive some IV abx for a recent UTI and discharge home with home health when medically stable. RN advised she had already notified Marciel North RN for home health services. EDUARD will continue to follow. Addendum: 12/16/20 at 1638 by DONNA CHAPA Pt accepted with [facility]. Pt added to weekend discharge list.
[2020-12-16 15:00] VITALS: BP 144/74
[2020-12-16] MEDS: cefTRIAXone IV Push 1 GM VIAL. IVP SCH (16:14)
[2020-12-16 19:00] VITALS: BP 136/70
--- NOTE | 2020-12-16 19:46 | CONS ---
DATE OF CONSULTATION: 12/16/2020 ATTENDING PHYSICIAN: Dr. Covarrubias. REASON FOR CONSULTATION: The patient was seen at the request of Dr. Covarrubias for rehab evaluation. HISTORY OF PRESENT ILLNESS: This is an 80-year-old female with known osteoporosis, depression, recent diagnosis of Alzheimer's dementia, admitted through the emergency room after a mechanical fall at home a few weeks ago. Since then, has been more paranoid over the last 6 weeks, was seen by her primary care physician, referred to Neurology who diagnosed her with Alzheimer's dementia and started on Aricept recently. She admits some lower back and left-sided rib pain. CT scan is negative for any acute fracture. CT scan of the head is normal. The patient apparently had poor appetite for a long time and has been losing weight. Her son notes that she forgets to eat. She was treated for urinary tract infection a week ago. The patient with known peptic ulcer disease, status post total hip arthroplasty and tonsillectomy. FAMILY HISTORY: Hypertension. ALLERGIES: SHE IS KNOWN ALLERGIC TO MILK CONTAINING PRODUCTS AND RALOXIFENE. The patient had CT scan of lumbar spine, which revealed severe L2-L3 and L3-L4 disc height loss and trace anterolisthesis of L4 on L5, degenerative changes in the facet joints, more prominent at L3-L4 and L4-L5, hypodense hepatic lesions likely cystic, aortic calcifications, moderate colonic stool, colonic diverticula. PHYSICAL EXAMINATION: GENERAL: Today revealed an elderly female. She is awake, oriented to place and person, follows commands appropriately. NEUROLOGIC: Moves all 4 extremities voluntarily where she had 4/5 to 4+/5 grade muscle strength. Deep tendon reflexes are brisk bilaterally with absent ankle jerks and she had tightness of heel cords bilaterally. She had painful range of motion of both lower extremities and upper extremity joints. She is independent with bed mobility and transfers take some time and she does not use proper body mechanics including bed mobility and transfers. Once up, she walked using a roller walker. When coming to a standing position, she leaves little bit backwards, but she walker under standby supervision using 4-wheeled roller walker. She gets tired easily. Her skin is intact at this time. Minimal tenderness to palpation over left lower thoracic and lumbar paraspinal muscle area. Straight leg raising test is negative bilaterally. ASSESSMENT: Elderly female with clinical evidence of peripheral neuropathy with a tight heel cord contributing to her balance problems and frequent falls in a patient with recent diagnosis of Alzheimer's dementia and also radiological evidence of degenerative disk disease and degenerative joint disease of lumbar vertebrae without any clinical evidence of ongoing lumbar radiculopathy. RECOMMENDATIONS: Agree with the plans for home with home health followup when medically stable. Dr. Covarrubias appreciate asking me to participate in the care of this interesting patient. I will be glad to see her for followup with you on as needed basis. JOVANNA DR: Karina TID: [id number]
[2020-12-16] MEDS: GABAPENTIN 100 MG CAPSULE. PO SCH (20:51)
[2020-12-16] MEDS: busPIRone 5 MG TABLET. PO SCH (20:51)
[2020-12-16] MEDS: DONEPEZIL HCL 5 MG TABLET. PO SCH (20:51)
[2020-12-16] MEDS: MEMANTINE 5 MG TABLET. PO SCH (20:51)
[2020-12-16 22:58] VITALS: BP 123/73
[2020-12-17 03:00] VITALS: BP 128/70
[2020-12-17 07:00] VITALS: BP 126/74
--- NOTE | 2020-12-17 07:40 | PDOC ---
[employer] PROGRESS NOTE Date of Service DOS: DATE: 12/17/20 TIME: 07:29 Chief Complaint Chief Complaint Acute encephalopathy - due to quick neurocognitive decline. No SDH noted. Urine with leukocyte esterase positive, likely due to UTI, will give rocephin IV. Light during day, prn zyprexa, frequent redirection Fall at home - no SDH, no fracture Dementia - on aricept, will hold for fall at home. exchange for memantine while inpatient Paranoia - likely acute psychosis due to infectious etiology from UTI GERD - H2 [place] at home - PT and PMR to evaluate FEN - General diet PPX - lovenox CODE - DNR/DNI Dispo - inpatient for acute encephalopathy History of Present Illness History of Present Illness Ms Acosta is an 80 yo female with history osteoporosis, depression and recent diagnosis of alzheimer dementia presents to the ED accompanied by her son. She had a mechanical fall at home a few weeks ago and has been more paranoid over the past 6 weeks. She was seen by her PCP, referred to neurology and was diagnosed with alzheimer dementia and started on aricept recently. States that she has a low back pain and left sided rib pain. CT negative for a cute fracture of spine or ribs. CT head with no intracranial abnormality. She states that she has had poor appetite for a long time and has been losing weight, her son notes she forgets to eat. Per history gathered from nursing, patient has had decline in her dementia over the past several weeks. She was treated for a UTI a week ago. She called the police on her son earlier last week. She has stated that she is unsafe at home, because he "sprays that stuff all around" but is unable to further elaborate what she is talking about. She insists on going home but cannot even stand up with me and WBC 6.9, Hb 10.9, platelets 25, NA 142, K4.1, BUN 14, CR 0.9, glucose 1, LFTs within normal laboratory limits. Urine with positive leukocyte esterase. 12/17/2020: Acute events overnight. Pleasantly confused this morning. Continue Rocephin 1 g daily. Await for urine cultures given concern for recent UTI at home resistant organism. Patient accepted with [facility], and will discharge home with son following urine culture results. Vitals/I&O Vitals/I&O: Vital Signs Date Time Temp Pulse Resp B/P (MAP) Pulse Ox O2 Delivery O2 Flow Rate FiO2 12/17/20 03:00 97.7 88 17 128/70 (89) 96 Room Air 97.7 Physical Exam General: Alert, Cooperative, No acute distress Heart: Regular rate Lungs: Clear Abdomen: Normal bowel sounds, Soft, No tenderness, No hepatosplenomegaly, No masses Extremities: No clubbing, No cyanosis, No edema, Normal pulses, No tenderness/swelling Skin: No rashes, No breakdown, No significant lesion Labs Labs: Laboratory Tests Test 12/16/20 07:30 12/16/20 11:45 Urine Collection Type Void Urine Color Yellow Urine Clarity Clear Urine pH 7.0 (<5.0-8.0) Urine Specific [place] <=1.005 (1.000-1.030) Urine Protein Negative mg/dL (NEG-TRACE) Urine Glucose (UA) Negative mg/dL (NEG) Urine Ketones (Stick) Negative mg/dL (NEG) Urine Blood Trace (NEG) Urine Nitrite Negative (NEG) Urine Bilirubin Negative (NEG) Urine Urobilinogen Dipstick 0.2 mg/dL (0.2 mg/dL) Urine Leukocyte Esterase Trace (NEG) Urine RBC 1-2 /HPF (0-2) Urine WBC 5-10 /HPF (0-4) Urine Squamous Epithelial Cells Occ /LPF Urine Bacteria Few /HPF (0-FEW) Urine Mucus Slight /LPF Coronavirus (COVID-19)(PCR) Not detected (NOT DETECTD) SARS-CoV-2 RNA (PHIL) Invalid (Negative) Assessment and Plan Assessmemt and Plan Problems Medical Problems: (1) Cachexia Status: Acute (2) Cognitive safety issue Status: Acute Comment Review of Relevant I have reviewed the following items ryan (where applicable) has been applied. Medications: Current Medications Medications (Trade) Dose Ordered Sig/Albino Route PRN Reason Start Time Stop Time Status Last Admin Dose Admin Olanzapine (ZyPREXA ZYDIS) 5 mg PRN BID PRN PO ANXIETY / AGITATION 12/16/20 07:45 12/16/20 20:56 Acetaminophen (Tylenol) 650 mg PRN Q6HRS PRN PO MILD PAIN / TEMP > 100.3'F 12/16/20 07:45 12/16/20 12:35 Gabapentin (Neurontin) 100 mg HS PO 12/16/20 21:00 10/1/21 20:51 Buspirone HCl (Buspar) 7.5 mg BID PO 12/16/20 21:00 12/16/20 20:51 Calcium/Vitamin D (Oscal D 500mg/ 200uts) 1 tab DAILY08 PO 12/16/20 12:00 12/16/20 12:35 Citalopram Hydrobromide (CeleXA) 40 mg DAILY PO 12/16/20 12:00 12/16/20 12:35 Multivitamins (Thera M Plus) 1 tab DAILY PO 12/16/20 12:00 12/16/20 12:35 Memantine (Namenda) 5 mg BID PO 12/16/20 21:00 12/16/20 20:51 Donepezil HCl (Aricept) 5 mg HS PO 12/16/20 21:00 12/16/20 20:51 Ceftriaxone Sodium (Rocephin) 1 gm Q24H IVP 12/16/20 14:00 12/16/20 16:14 Justifications for Admission Other Justification LUKE LEVIN MD Dec 17, 2020 07:40
[2020-12-17] MEDS: CALCIUM CARB/VIT D3 500/200 TABLET. PO SCH (09:33)
[2020-12-17] MEDS: MULTIVITAMIN with MINERAL TABLET. PO SCH (09:33)
[2020-12-17] MEDS: CITALOPRAM 20 MG TABLET. PO SCH (09:34)
[2020-12-17] MEDS: ENOXAPARIN 30 MG/0.3 ML SYRINGE. SQ SCH (09:34)
[2020-12-17] MEDS: busPIRone 5 MG TABLET. PO SCH ×2 (09:34→20:49)
[2020-12-17] MEDS: MEMANTINE 5 MG TABLET. PO SCH ×2 (09:34→20:49)
--- NOTE | 2020-12-17 10:37 | PDOC ---
PROGRESS NOTES Date of Service DATE: 12/17/20 TIME: 10:34 Subjective Subjective She does not feel good this AM. Objective Objective Vital Signs Date Time Temp Pulse Resp B/P (MAP) Pulse Ox O2 Delivery O2 Flow Rate FiO2 12/17/20 07:00 98.0 94 20 126/74 (91) 94 Room Air 98.0 Intake and Output 12/17/20 07:00 # Voids 5 Physical Exam Physical Exam She is awake,supine in bed with hips and knees in flexed position and she has be en getting up with roller walker and she continues with tight heel cords that makes her unsteady and probably responsible for her falls. Assessment Assessment Problems Medical Problems: (1) Cachexia Status: Acute (2) Cognitive safety issue Status: Acute Plan Plan of Care To get her up as tolerated and she needs standby supervision while up with roller walker to avoid falls. Comment Review of Relevant I have reviewed the following items ryan (where applicable) has been applied. Labs Laboratory Tests Test 12/16/20 04:45 12/16/20 07:30 12/16/20 11:45 White Blood Count 6.9 x10^3/uL (4.0-11.0) Red Blood Count 3.38 x10^6/uL (3.50-5.40) Hemoglobin 10.9 g/dL (12.0-15.5) Hematocrit 31.6 % (36.0-47.0) Mean Corpuscular Volume 94 fL (79-100) Mean Corpuscular Hemoglobin 32 pg (25-35) Mean Corpuscular Hemoglobin Concent 35 g/dL (31-37) Red Cell Distribution Width 14.5 % (11.5-14.5) Platelet Count 185 x10^3/uL (140-400) Neutrophils (%) (Auto) 83 % (31-73) Lymphocytes (%) (Auto) 9 % (24-48) Monocytes (%) (Auto) 7 % (0-9) Eosinophils (%) (Auto) 1 % (0-3) Basophils (%) (Auto) 0 % (0-3) Neutrophils # (Auto) 5.7 x10^3/uL (1.8-7.7) Lymphocytes # (Auto) 0.6 x10^3/uL (1.0-4.8) Monocytes # (Auto) 0.5 x10^3/uL (0.0-1.1) Eosinophils # (Auto) 0.0 x10^3/uL (0.0-0.7) Basophils # (Auto) 0.0 x10^3/uL (0.0-0.2) Sodium Level 142 mmol/L (136-145) Potassium Level 4.1 mmol/L (3.5-5.1) Chloride Level 106 mmol/L (98-107) Carbon Dioxide Level 32 mmol/L (21-32) Anion Gap 4 (6-14) Blood Urea Nitrogen 14 mg/dL (7-20) Creatinine 0.9 mg/dL (0.6-1.0) Estimated GFR (Cockcroft-Gault) 60.2 BUN/Creatinine Ratio 16 (6-20) Glucose Level 105 mg/dL (70-99) Calcium Level 9.3 mg/dL (8.5-10.1) Phosphorus Level 3.3 mg/dL (2.6-4.7) Magnesium Level 2.1 mg/dL (1.8-2.4) Iron Level 58 ug/dL (50-170) Total Iron Binding Capacity 214 ug/dL (250-450) Iron Saturation 27 % (15-34) Total Bilirubin 0.4 mg/dL (0.2-1.0) Aspartate Amino Transf (AST/SGOT) 13 U/L (15-37) Alanine Aminotransferase (ALT/SGPT) 26 U/L (14-59) Alkaline Phosphatase 42 U/L (46-116) Total Protein 7.1 g/dL (6.4-8.2) Albumin 4.0 g/dL (3.4-5.0) Albumin/Globulin Ratio 1.3 (1.0-1.7) Vitamin B12 Level 1053 pg/mL (247-911) Thyroid Stimulating Hormone (TSH) 0.372 uIU/mL (0.358-3.74) Urine Collection Type Void Urine Color Yellow Urine Clarity Clear Urine pH 7.0 (<5.0-8.0) Urine Specific [place] <=1.005 (1.000-1.030) Urine Protein Negative mg/dL (NEG-TRACE) Urine Glucose (UA) Negative mg/dL (NEG) Urine Ketones (Stick) Negative mg/dL (NEG) Urine Blood Trace (NEG) Urine Nitrite Negative (NEG) Urine Bilirubin Negative (NEG) Urine Urobilinogen Dipstick 0.2 mg/dL (0.2 mg/dL) Urine Leukocyte Esterase Trace (NEG) Urine RBC 1-2 /HPF (0-2) Urine WBC 5-10 /HPF (0-4) Urine Squamous Epithelial Cells Occ /LPF Urine Bacteria Few /HPF (0-FEW) Urine Mucus Slight /LPF Coronavirus (COVID-19)(PCR) Not detected (NOT DETECTD) SARS-CoV-2 RNA (PHIL) Invalid (Negative) Laboratory Tests Test 12/16/20 11:45 Coronavirus (COVID-19)(PCR) Not detected (NOT DETECTD) SARS-CoV-2 RNA (PHIL) Invalid (Negative) Microbiology 12/16/20 Urine Culture - Final, Complete Medications Current Medications Olanzapine (ZyPREXA ZYDIS) 5 mg PRN BID PRN PO ANXIETY / AGITATION Last administered on 12/16/20at 20:56; Start 12/16/20 at 07:45 Ondansetron HCl (Zofran) 4 mg PRN Q4HRS PRN IVP NAUSEA/VOMITING; Start 12/16/20 at 07:45 Acetaminophen (Tylenol) 650 mg PRN Q6HRS PRN PO MILD PAIN / TEMP > 100.3'F Last administered on 12/16/20at 12:35; Start 12/16/20 at 07:45 Enoxaparin Sodium (Lovenox 30mg Syringe) 30 mg Q24H SQ Last administered on 12/17/20at 09:34; Start 12/16/20 at 09:00 Gabapentin (Neurontin) 100 mg HS PO Last administered on 12/16/20at 20:51; Start 12/16/20 at 21:00 Buspirone HCl (Buspar) 7.5 mg BID PO Last administered on 12/17/20 09:34; Start 12/16/20 at 21:00 Calcium/Vitamin D (Oscal D 500mg/ 200uts) 1 tab DAILY08 PO Last administered on 12/17/20at 09:33; Start 12/16/20 at 12:00 Citalopram Hydrobromide (CeleXA) 40 mg DAILY PO Last administered on 12/17/20at 09:34; Start 12/16/20 at 12:00 Multivitamins (Thera M Plus) 1 tab DAILY PO Last administered on 12/17/20at 09:33; Start 12/16/20 at 12:00 Memantine (Namenda) 5 mg BID PO Last administered on 12/17/20at 09:34; Start 12/16/20 at 21:00 Donepezil HCl (Aricept) 5 mg HS PO Last administered on 12/16/20at 20:51; Start 12/16/20 at 21:00 Ceftriaxone Sodium (Rocephin) 1 gm Q24H IVP Last administered on 12/16/20at 16:14; Start 12/16/20 at 14:00 Active Scripts Active Hydrocodone-Apap 7.5-325 (Hydrocodone Bit/Acetaminophen) 1 Each Tablet 1 Tab PO PRN Q4HRS PRN Cefpodoxime Proxetil 100 Mg Tablet 200 Mg PO BID 3 Days Reported Acetaminophen 500 Mg Tablet 1 Tab PO PRN Q6HRS PRN 15 Days Tramadol Hcl 50 Mg Tablet 100 Mg PO TID PRN Gabapentin (Gabapentin) 100 Mg Capsule 100 Mg PO HS Buspirone Hcl 15 Mg Tablet 7.5 Tab PO BID Donepezil Hcl 5 Mg Tablet 5 Mg PO HS Centrum Adults Tablet (Multivitamin/Iron/Folic Acid) 1 Each Tablet 1 Each PO DAILY Calcium + Vitamin D Tablet (Calcium Carbonate/Vitamin D3) 1 Each Tablet 1 Each PO DAILY Citalopram Hbr (Citalopram Hydrobromide) 40 Mg Tablet 1 Tab PO DAILY No Known Medications Prior To Admisstion (Info) Each 1 Each Vitals/I & O Vital Sign - Last 24 Hours 12/16/20 12/16/20 12/16/20 12/16/20 11:00 15:00 19:00 22:58 Temp 97.9 98.1 97.7 97.8 97.9 98.1 97.7 97.8 Pulse 95 104 108 90 Resp 16 16 17 17 B/P (MAP) 146/82 (103) 144/74 (97) 136/70 (92) 123/73 (90) Pulse Ox 99 97 99 97 O2 Delivery Room Air Room Air Room Air Room Air 12/17/20 12/17/20 03:00 07:00 Temp 97.7 98.0 97.7 98.0 Pulse 88 94 Resp 17 20 B/P (MAP) 128/70 (89) 126/74 (91) Pulse Ox 96 94 O2 Delivery Room Air Room Air Justifications for Admission Other Justification CRISTOBAL WALTERS MD Dec 17, 2020 10:37
[2020-12-17 11:19] VITALS: BP 131/72
[2020-12-17] MEDS: cefTRIAXone IV Push 1 GM VIAL. IVP SCH (14:29)
[2020-12-17 14:47] VITALS: BP 106/60
[2020-12-17 19:00] VITALS: BP 131/66
[2020-12-17] MEDS: DONEPEZIL HCL 5 MG TABLET. PO SCH (20:49)
[2020-12-17] MEDS: LACTOBACILLUS RHAMNOSUS GG 1 CAPSULE. PO SCH (20:49)
[2020-12-17] MEDS: GABAPENTIN 100 MG CAPSULE. PO SCH (20:49)
[2020-12-17 23:00] VITALS: BP 112/73
[2020-12-18] VITALS (7 sets, daily range): BP systolic 72–127; BP diastolic 31–82
--- NOTE | 2020-12-18 07:55 | PDOC ---
[facility] PROGRESS NOTE Date of Service DOS: DATE: 12/18/20 TIME: 07:51 Chief Complaint Chief Complaint Acute encephalopathy - due to quick neurocognitive decline. No SDH noted. Urine with leukocyte esterase positive, likely due to UTI, will give rocephin IV. Light during day, prn zyprexa, frequent redirection Fall at home - no SDH, no fracture Dementia - on aricept, will hold for fall at home. exchange for memantine while inpatient Paranoia - likely acute psychosis due to infectious etiology from UTI GERD - H2 ricardo Falls at home - PT and PMR to evaluate FEN - General diet PPX - lovenox CODE - DNR/DNI Dispo - inpatient for acute encephalopathy History of Present Illness History of Present Illness Ms Acosta is an 80 yo female with history osteoporosis, depression and recent diagnosis of alzheimer dementia presents to the ED accompanied by her son. She had a mechanical fall at home a few weeks ago and has been more paranoid over the past 6 weeks. She was seen by her PCP, referred to neurology and was diagnosed with alzheimer dementia and started on aricept recently. States that she has a low back pain and left sided rib pain. CT negative for a cute fracture of spine or ribs. CT head with no intracranial abnormality. She states that she has had poor appetite for a long time and has been losing weight, her son notes she forgets to eat. Per history gathered from nursing, patient has had decline in her dementia over the past several weeks. She was treated for a UTI a week ago. She called the police on her son earlier last week. She has stated that she is unsafe at home, because he "sprays that stuff all around" but is unable to further elaborate what she is talking about. She insists on going home but cannot even stand up with me and WBC 6.9, Hb 10.9, platelets 25, NA 142, K4.1, BUN 14, CR 0.9, glucose 1, LFTs within normal laboratory limits. Urine with positive leukocyte esterase. 12/17/2020: Acute events overnight. Pleasantly confused this morning. Continue Rocephin 1 g daily. Await for urine cultures given concern for recent UTI at home resistant organism. Patient accepted with [facility], and will discharge home with son following urine culture results. 12/18/2020: Afebrile. Final urine culture showed no growth; will discontinue Rocephin. Spoke with patient's son, Cruz. He is concerned about his ability to appropriately care for her given her worsening dementia. He is wondering if she would be appropriate for [facility] behavioral health unit. Will defer to bilingual social worker in this regard. Patient accepted with [facility], and if no availability at [facility] he states she can discharge home with him. PT/OT ordered. Vitals/I&O Vitals/I&O: Vital Signs Date Time Temp Pulse Resp B/P (MAP) Pulse Ox O2 Delivery O2 Flow Rate FiO2 12/18/20 02:59 97.4 95 18 127/79 (95) 98 Room Air 97.4 I & O 12/17/20 12/17/20 12/18/20 15:00 23:00 07:00 Intake Total 300 ml 100 ml Balance 300 ml 100 ml Physical Exam General: Alert, Cooperative, No acute distress Heart: Regular rate Lungs: Clear Abdomen: Normal bowel sounds, Soft, No tenderness, No hepatosplenomegaly, No masses Extremities: No clubbing, No cyanosis, No edema, Normal pulses, No tenderness/swelling Skin: No rashes, No breakdown, No significant lesion Assessment and Plan Assessmemt and Plan Problems Medical Problems: (1) Cachexia Status: Acute (2) Cognitive safety issue Status: Acute Comment Review of Relevant I have reviewed the following items ryan (where applicable) has been applied. Medications: Current Medications Medications (Trade) Dose Ordered Sig/[place] Route PRN Reason Start Time Stop Time Status Last Admin Dose Admin Lactobacillus Rhamnosus (Culturelle) 1 cap BID PO 12/17/20 21:00 12/17/20 20:49 Justifications for Admission Other Justification LUKE LEVIN MD Dec 18, 2020 07:55
[2020-12-18] MEDS: busPIRone 5 MG TABLET. PO SCH ×2 (09:24→21:31)
[2020-12-18] MEDS: MEMANTINE 5 MG TABLET. PO SCH ×2 (09:24→21:32)
[2020-12-18] MEDS: CALCIUM CARB/VIT D3 500/200 TABLET. PO SCH (09:24)
[2020-12-18] MEDS: LACTOBACILLUS RHAMNOSUS GG 1 CAPSULE. PO SCH ×2 (09:24→21:32)
[2020-12-18] MEDS: MULTIVITAMIN with MINERAL TABLET. PO SCH (09:24)
[2020-12-18] MEDS: ENOXAPARIN 30 MG/0.3 ML SYRINGE. SQ SCH (09:25)
[2020-12-18] MEDS: CITALOPRAM 20 MG TABLET. PO SCH (09:28)
[2020-12-18] MEDS: DONEPEZIL HCL 5 MG TABLET. PO SCH (21:32)
[2020-12-18] MEDS: GABAPENTIN 100 MG CAPSULE. PO SCH (21:32)
[2020-12-19 03:00] VITALS: BP 125/59
[2020-12-19 07:15] VITALS: BP 138/83
--- NOTE | 2020-12-19 09:27 | PDOC ---
PROGRESS NOTES Date of Service DATE: 12/19/20 TIME: 09:25 Subjective Subjective No new complaints. Objective Objective Vital Signs Date Time Temp Pulse Resp B/P (MAP) Pulse Ox O2 Delivery O2 Flow Rate FiO2 12/19/20 07:15 98.5 85 18 138/83 (101) 95 Room Air 98.5 Intake and Output 12/19/20 06:59 Intake Total 100 ml Balance 100 ml Intake Oral 100 ml # Voids 4 Physical Exam Physical Exam She is snoring with open mouth,supine in bed and nursing reports of continued cognitive deficits. Assessment Assessment Problems Medical Problems: (1) Cachexia Status: Acute (2) Cognitive safety issue Status: Acute Plan Plan of Care To home with assistance when medically stable. Comment Review of Relevant I have reviewed the following items ryan (where applicable) has been applied. Labs Microbiology 12/16/20 Urine Culture - Final, Complete Medications Current Medications Olanzapine (ZyPREXA ZYDIS) 5 mg PRN BID PRN PO ANXIETY / AGITATION Last administered on 12/18/20at 21:32; Start 12/16/20 at 07:45 Ondansetron HCl (Zofran) 4 mg PRN Q4HRS PRN IVP NAUSEA/VOMITING; Start 12/16/20 at 07:45 Acetaminophen (Tylenol) 650 mg PRN Q6HRS PRN PO MILD PAIN / TEMP > 100.3'F Last administered on 12/16/20at 12:35; Start 12/16/20 at 07:45 Enoxaparin Sodium (Lovenox 30mg Syringe) 30 mg Q24H SQ Last administered on 12/18/20at 09:25; Start 12/16/20 at 09:00 Gabapentin (Neurontin) 100 mg HS PO Last administered on 12/18/20at 21:32; Start 12/16/20 at 21:00 Buspirone HCl (Buspar) 7.5 mg BID PO Last administered on 12/18/20at 21:31; Start 12/16/20 at 21:00 Calcium/Vitamin D (Oscal D 500mg/ 200uts) 1 tab DAILY08 PO Last administered on 12/18/20at 09:24; Start 12/16/20 at 12:00 Citalopram Hydrobromide (CeleXA) 40 mg DAILY PO Last administered on 12/18/20at 09:28; Start 12/16/20 at 12:00 Multivitamins (Thera M Plus) 1 tab DAILY PO Last administered on 12/18/20at 09:24; Start 12/16/20 at 12:00 Memantine (Namenda) 5 mg BID PO Last administered on 12/18/20at 21:32; Start 12/16/20 at 21:00 Donepezil HCl (Aricept) 5 mg HS PO Last administered on 12/18/20at 21:32; Start 12/16/20 at 21:00 Ceftriaxone Sodium (Rocephin) 1 gm Q24H IVP Last administered on 12/17/20at 14:29; Start 12/16/20 at 14:00; Stop 12/18/20 at 07:55; Status DC Lactobacillus Rhamnosus (Culturelle) 1 cap BID PO Last administered on 12/18/20at 21:32; Start 12/17/20 at 21:00 Active Scripts Active Hydrocodone-Apap 7.5-325 (Hydrocodone Bit/Acetaminophen) 1 Each Tablet 1 Tab PO PRN Q4HRS PRN Cefpodoxime Proxetil 100 Mg Tablet 200 Mg PO BID 3 Days Reported Acetaminophen 500 Mg Tablet 1 Tab PO PRN Q6HRS PRN 15 Days Tramadol Hcl 50 Mg Tablet 100 Mg PO TID PRN Gabapentin (Gabapentin) 100 Mg Capsule 100 Mg PO HS Buspirone Hcl 15 Mg Tablet 7.5 Tab PO BID Donepezil Hcl 5 Mg Tablet 5 Mg PO HS Centrum Adults Tablet (Multivitamin/Iron/Folic Acid) 1 Each Tablet 1 Each PO DAILY Calcium + Vitamin D Tablet (Calcium Carbonate/Vitamin D3) 1 Each Tablet 1 Each PO DAILY Citalopram Hbr (Citalopram Hydrobromide) 40 Mg Tablet 1 Tab PO DAILY No Known Medications Prior To Admisstion (Info) Each 1 Each Vitals/I & O Vital Sign - Last 24 Hours 12/18/20 12/18/20 12/18/20 12/18/20 11:00 15:00 16:22 19:00 Temp 97.6 98.2 98.4 97.6 98.2 98.4 Pulse 99 96 106 Resp 16 18 18 B/P (MAP) 84/50 (61) 72/31 (45) 123/47 (72) 97/56 (70) Pulse Ox 99 99 97 O2 Delivery Room Air Room Air Room Air 12/18/20 12/19/20 12/19/20 23:00 03:00 07:15 Temp 98.1 97.8 98.5 98.1 97.8 98.5 Pulse 103 88 85 Resp 18 18 18 B/P (MAP) 99/82 (88) 125/59 (81) 138/83 (101) Pulse Ox 97 98 95 O2 Delivery Room Air Room Air Room Air Intake and Output 12/18/20 12/18/20 12/19/20 14:59 22:59 06:59 Intake Total 100 ml Balance 100 ml Justifications for Admission Other Justification CRISTOBAL WALTERS MD Dec 19, 2020 09:27
[2020-12-19] MEDS ORDERED: MEMA5TAB42 PO (11:05)
--- NOTE | 2020-12-19 11:08 | SNU/HH DC ---
DISCHARGE WITH HOME HEALTH DISCHARGE INFORMATION: Discharge Date: Dec 19, 2020 Final Diagnosis: Problems Medical Problems: (1) Cachexia Status: Acute (2) Cognitive safety issue Status: Acute Condition on Discharge: Stable HOME HEALTH: Face to Face: I certify this patient is under my care and that I, or a nurse practitioner or physician's hospital clinic assistant working with me, had a face to face encounter that meets the physician face to face encounter requirements with this patient on []. RN For Eval/Treatment: Yes Physical Therapy For: Evalulation/Treatment Occupational Therapy For: Evaluation/Treatment Pt Meets Homebound Status: Poor coordination w/ amb., Limited distance walking POST DISCHARGE ORDERS: Activity Instructions for Disc: Activity as tolerated, Progressive ambulation Weight Bearing Status after Di: As tolerated Bathing Instructions: Shower-keep dressing dry Wound/Incision Care: Ice to area for comfort, Keep wound/cast CDI, Change dressing, Reinforce dressing PRN FOLLOW-UP: Follow up with: PCP within 2 weeks of discharge DC TO SNF LABS: CBC, CMP TREATMENT/EQUIPMENT ORDERS: Adaptive Equipment Issued: Bath Bench, Brace/splint, Commode, Grab bars, Raised toilet seat w/arms, Raised toilet seat, Walker, Wheelchair Discharge Respiratory Equipmen: CPAP CERTIFICATION STATEMENT: Certification Statement: Certification Statement: Based on the above finding, I certify that this patient is confined to the home and needs intermittent longterm care, physical therapy and/or speech therapy, or continues to need occupational therapy.~ This patient is under my care, and I have initiated the establishment of the plan of care.~ This patient will be followed by myself or a community physician who will periodically review the plan of care. Home Meds Active Scripts Memantine HCl (Memantine HCl) 5 Mg Tablet, 5 MG PO BID for memory loss prevention for 30 Days, #60 TAB 1 Refill Prov:BOOGIE COLEMAN MD 12/19/20 Hydrocodone Bit/Acetaminophen (HYDROCODONE-APAP 7.5-325 ) 1 Each Tablet, 1 TAB PO PRN Q4HRS PRN for MODERATE PAIN, #10 TAB Prov:VEGA RODRIGUEZ MD 09/03/17 Reported Medications Acetaminophen (ACETAMINOPHEN) 500 Mg Tablet, 1 TAB PO PRN Q6HRS PRN for pain or fever for 15 Days, #60 TAB 0 Refills 12/16/20 Tramadol Hcl (TRAMADOL HCL) 50 Mg Tablet, 100 MG PO TID PRN for PAIN, TAB 0 Refills 12/16/20 Gabapentin (GABAPENTIN ) 100 Mg Capsule, 100 MG PO HS for NEUROGENIC PAIN, CAP 12/16/20 Buspirone Hcl (BUSPIRONE HCL) 15 Mg Tablet, 7.5 TAB PO BID for psych, #60 TAB 12/16/20 Donepezil Hcl (DONEPEZIL HCL) 5 Mg Tablet, 5 MG PO HS for psych, TAB 12/16/20 Multivitamin/Iron/Folic Acid (Centrum Adults Tablet) 1 Each Tablet, 1 EACH PO DAILY, TAB 07/24/17 Calcium Carbonate/Vitamin D3 (CALCIUM + VITAMIN D TABLET) 1 Each Tablet, 1 EACH PO DAILY, TAB 07/24/17 Citalopram Hydrobromide (CITALOPRAM HBR) 40 Mg Tablet, 1 TAB PO DAILY, #90 TAB 1 Refill 07/24/17 Info (NO KNOWN MEDICATIONS PRIOR TO ADMISSTION) Each, 1 EACH , EACH 05/28/17 Discontinued Scripts Cefpodoxime Proxetil (CEFPODOXIME PROXETIL) 100 Mg Tablet, 200 MG PO BID for 3 Days, #12 TAB Prov:VEGA RODRIGUEZ MD 09/03/17 BOOGIE COLEMAN MD Dec 19, 2020 11:08
[2020-12-19 11:15] VITALS: BP 119/67
--- NOTE | 2020-12-19 12:02 | NUR ---
SW following. Discussed with RN, discharge orders for home with home health. Maricel North RN notified. No further SW needs.
[2020-12-19] MEDS: LACTOBACILLUS RHAMNOSUS GG 1 CAPSULE. PO SCH (12:11)
[2020-12-19] MEDS: CALCIUM CARB/VIT D3 500/200 TABLET. PO SCH (12:11)
[2020-12-19] MEDS: MEMANTINE 5 MG TABLET. PO SCH (12:11)
[2020-12-19] MEDS: ENOXAPARIN 30 MG/0.3 ML SYRINGE. SQ SCH (12:11)
[2020-12-19] MEDS: MULTIVITAMIN with MINERAL TABLET. PO SCH (12:11)
[2020-12-19] MEDS: CITALOPRAM 20 MG TABLET. PO SCH (12:12)
[2020-12-19] MEDS: busPIRone 5 MG TABLET. PO SCH (12:12)
[2020-12-19 15:10] VITALS: BP 102/55
--- NOTE | 2020-12-19 16:35 | NUR ---
Pt discharged home with HH. Discharge instructions discussed with son. Pt assisted to wheelchair and was secured in car with son. Belongings were packed and taken by son.
--- NOTE | 2020-12-20 16:57 | PDOC3 ---
[facility]-Discharge Summary Date of Admission: Date of Admission: Dec 16, 2020 Date of Discharge: Date of Discharge: Dec 19, 2020 Discharge Diagnosis: Discharge Diagnosis: Acute metabolic encephalopathy - due to quick neurocognitive decline. No SDH noted. Urine with leukocyte esterase positive, likely due to UTI, will give rocephin IV. Light during day, prn zyprexa, frequent redirection Fall at home - no SDH, no fracture Dementia - on aricept, will hold for fall at home. exchange for memantine while inpatient Paranoia - likely acute psychosis due to infectious etiology from UTI GERD - H2 [place] at home - PT and PMR to evaluate Hospital Course: Hospital Course: 80 yo female with history osteoporosis, depression and recent diagnosis of alzheimer dementia presents to the ED accompanied by her son. She had a mechanical fall at home a few weeks ago and has been more paranoid over the past 6 weeks. She was seen by her PCP, referred to neurology and was diagnosed with alzheimer dementia and started on aricept recently. States that she has a low back pain and left sided rib pain. CT negative for acute fracture of spine or ribs. CT head with no intracranial abnormality. She states that she has had poor appetite for a long time and has been losing weight, her son notes she forgets to eat. Per history gathered from nursing, patient has had decline in her dementia over the past several weeks. She was treated for a UTI a week ago. She called the police on her son earlier last week. She has stated that she is unsafe at home, because he "sprays that stuff all around" but is unable to further elaborate what she is talking about. She insists on going home but cannot even stand up with me and WBC 6.9, Hb 10.9, platelets 25, NA 142, K4.1, BUN 14, CR 0.9, glucose 1, LFTs within normal laboratory limits. Urine with positive leukocyte esterase. 12/17/2020: Acute events overnight. Pleasantly confused this morning. Continue Rocephin 1 g daily. Await for urine cultures given concern for recent UTI at home resistant organism. Patient accepted with [facility], and will discharge home with son following urine culture results. 12/18/2020: Afebrile. Final urine culture showed no growth; will discontinue Rocephin. Spoke with patient's son, Cruz. He is concerned about his ability to appropriately care for her given her worsening dementia. He is wondering if she would be appropriate for [facility] behavioral health unit. Will defer to director of social services in this regard. Patient accepted with [facility], and if no availability at [facility] he states she can discharge home with him. PT/OT ordered. By day of discharge, pt was clinically stable and ready for discharge. Rest of hospital course was uneventful. Disposition: Disposition/Orders: D/C to Another Facility Activity: Activity: Resume previous activity Diet: Diet: Regular Medications: Home Meds Active Scripts Memantine HCl (Memantine HCl) 5 Mg Tablet, 5 MG PO BID for memory loss prevention for 30 Days, #60 TAB 1 Refill Prov:BOOGIE COLEMAN MD 12/19/20 Hydrocodone Bit/Acetaminophen (HYDROCODONE-APAP 7.5-325 ) 1 Each Tablet, 1 TAB PO PRN Q4HRS PRN for MODERATE PAIN, #10 TAB Prov:VEGA RODRIGUEZ MD 09/03/17 Reported Medications Acetaminophen (ACETAMINOPHEN) 500 Mg Tablet, 1 TAB PO PRN Q6HRS PRN for pain or fever for 15 Days, #60 TAB 0 Refills 12/16/20 Tramadol Hcl (TRAMADOL HCL) 50 Mg Tablet, 100 MG PO TID PRN for PAIN, TAB 0 Refills 12/16/20 Gabapentin (GABAPENTIN ) 100 Mg Capsule, 100 MG PO HS for NEUROGENIC PAIN, CAP 12/16/20 Buspirone Hcl (BUSPIRONE HCL) 15 Mg Tablet, 7.5 TAB PO BID for psych, #60 TAB 12/16/20 Donepezil Hcl (DONEPEZIL HCL) 5 Mg Tablet, 5 MG PO HS for psych, TAB 12/16/20 Multivitamin/Iron/Folic Acid (Centrum Adults Tablet) 1 Each Tablet, 1 EACH PO DAILY, TAB 07/24/17 Calcium Carbonate/Vitamin D3 (CALCIUM + VITAMIN D TABLET) 1 Each Tablet, 1 EACH PO DAILY, TAB 07/24/17 Citalopram Hydrobromide (CITALOPRAM HBR) 40 Mg Tablet, 1 TAB PO DAILY, #90 TAB 1 Refill 07/24/17 Info (NO KNOWN MEDICATIONS PRIOR TO ADMISSTION) Each, 1 EACH , EACH 05/28/17 Discontinued Scripts Cefpodoxime Proxetil (CEFPODOXIME PROXETIL) 100 Mg Tablet, 200 MG PO BID for 3 Days, #12 TAB Prov:VEGA RODRIGUEZ MD 09/03/17 Scheduled Buspirone Hcl (Buspirone Hcl), 7.5 TAB PO BID, (Reported) Calcium Carbonate/Vitamin D3 (Calcium + Vitamin D Tablet), 1 EACH PO DAILY, (Reported) Citalopram Hydrobromide (Citalopram Hbr), 1 TAB PO DAILY, (Reported) Donepezil Hcl (Donepezil Hcl), 5 MG PO HS, (Reported) Gabapentin (Gabapentin ), 100 MG PO HS, (Reported) Memantine HCl (Memantine HCl), 5 MG PO BID Multivitamin/Iron/Folic Acid (Centrum Adults Tablet), 1 EACH PO DAILY, (Reported) Scheduled PRN Acetaminophen (Acetaminophen), 1 TAB PO PRN Q6HRS PRN for pain or fever, (Reported) Hydrocodone Bit/Acetaminophen (Hydrocodone-Apap 7.5-325 ), 1 TAB PO PRN Q4HRS PRN for MODERATE PAIN Tramadol Hcl (Tramadol Hcl), 100 MG PO TID PRN for PAIN, (Reported) Miscellaneous Medications Info (No Known Medications Prior To Admisstion), 1 EACH , (Reported) Discontinued Medications Cefpodoxime Proxetil (Cefpodoxime Proxetil), 200 MG PO BID Total Time: Total Time: Total time spent was 34 minutes in preparing scripts and discharge planning with SW and RN Patient seen and examined on day of Discharge. Justicifation of Admission Dx: Justifications for Admission: Justification of Admission Dx: Yes Altered Mental Status: Altered Mental Status BOOGIE COLEMAN MD Dec 20, 2020 16:57
== END 2020-12-19 16:38 | disposition home health service (06) | DRG 689 ==
LOC: ER 03:44 → 4 NORTH 05:19 → OBSVTOIN 14:23
PROVIDERS: ADMIT Family Medicine; ATTEND Family Medicine
DX: N39.0 Urinary tract infection, site not specified (principal); G93.41 Metabolic encephalopathy; F23 Brief psychotic disorder; R64 Cachexia; F02.80 Dementia in other diseases classified elsewhere, unspecified severity, without behavioral disturbance, psychotic disturbance, mood disturbance, and anxiety; F32.A Depression, unspecified; G30.9 Alzheimer's disease, unspecified; G62.9 Polyneuropathy, unspecified; K21.9 Gastro-esophageal reflux disease without esophagitis; K57.30 Diverticulosis of large intestine without perforation or abscess without bleeding; K76.9 Liver disease, unspecified; M47.816 Spondylosis without myelopathy or radiculopathy, lumbar region; M81.0 Age-related osteoporosis without current pathological fracture; R29.6 Repeated falls; W01.0XXA Fall on same level from slipping, tripping and stumbling without subsequent striking against object, initial encounter; Y92.009 Unspecified place in unspecified non-institutional (private) residence as the place of occurrence of the external cause; Z66 Do not resuscitate; Z82.49 Family history of ischemic heart disease and other diseases of the circulatory system; Z87.11 Personal history of peptic ulcer disease; Z96.649 Presence of unspecified artificial hip joint; Z20.822 Contact with and (suspected) exposure to COVID-19
CPT/HCPCS: 36415; 70450; 71045; 72131; 80053; 81001; 82607; 83540; 83550; 83735; 84100; 84443; 85025; 87086; G0378; G0379; J0696; J1650; U0003; U0005; 97116-GP; 97535-GO; 99285-25